=== PATIENT | male | born 1960 | race Caucasian/White ===

== ENCOUNTER 2017-01-26 19:00 | Observation (INO) | payer BC ==
--- NOTE | ~2017-01-26 | CT17 ---
[facility] A Service of [facility] & [facility] RADIOLOGY TEXT RESULTS PATIENT: SUSANNA HOLLEY LOCATION: [facility] 562-01 : 56 UNIT #: [id number] AGE: [address]: Nay White MD SEX: M ORDER DR: [id number] [place], [place] [address] [id number] I MR#: [id number] Acc #: [id number] NAME: SUSANNA HOLLEY : 1960 SEX: M STUDY DATE/TIME: 01/27/2017 12:30 UNIT: [facility] ROOM: [facility] STUDY DESCRIPTION: CT Angio Head Attending Physician: Nay White M.D. Ordering Physician: Claire Santana M.D. Primary Care Physician: Annie Gaming M.D. MEDICAL IMAGING REPORT This report is preliminary unless electronic signature is present EXAM CT angio head HISTORY Dizziness and difficulty walking for [address] FINDINGS Please see CT ANGIO NECK report for combined text results. Dictated by... Maile Vitale M.D. THIS IS AN ELECTRONICALLY VERIFIED REPORT Maile Vitale M.D. at 01/29/2017 1:46 PM CPR/psc TD: 01/28/2017 16:55 JOB #: [id number] MEDICAL IMAGING REPORT Page 1 of 1 COPY
--- NOTE | ~2017-01-26 | CT23 ---
[facility] A Service of [facility] & [facility] RADIOLOGY TEXT RESULTS PATIENT: SUSANNA HOLLEY LOCATION: [facility] 562-01 : 56 UNIT #: [id number] AGE: [address]: Nay White MD SEX: M ORDER DR: [id number] [facility] [address] [place], [place] [address] [id number] I MR#: [id number] Acc #: [id number] NAME: SUSANNA HOLLEY : 1960 SEX: M STUDY DATE/TIME: 01/27/2017 12:30 UNIT: [facility] ROOM: [facility] STUDY DESCRIPTION: CT Angio Neck Attending Physician: Nay White M.D. Ordering Physician: Claire Santana M.D. Primary Care Physician: Annie Gaming M.D. MEDICAL IMAGING REPORT This report is preliminary unless electronic signature is present EXAM CT angiogram of the head and neck with contrast dated 01/27/2017. COMPARISON MRI brain without contrast dated 01/27/2017. No prior MRA or CTA head and neck studies. HISTORY Dizziness and difficulty walking for [address] angiogram of the head and neck was obtained with IV contrast in the axial plane followed by sagittal, axial and coronal reformats of the head, curved reformats of bilateral carotid and vertebral arteries, surface-rendered images and tumbling MIP images of the [place] were obtained in a separate workstation. This CT exam was performed with one or more of the following radiation dose reduction techniques: Automatic exposure control, adjustment of mA and/or kV according to patient size, and iterative reconstruction. 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 Bilateral common carotid arteries demonstrate mild atherosclerotic plaques at the bifurcation. Bilateral internal and external carotid arteries appear to be grossly unremarkable. Right vertebral artery is dominant and within normal limits. The left vertebral artery demonstrates flow in the proximal V1 segment but it has no flow in the remaining portion of the left vertebral artery until the level of C1-2, where it is reconstituted. There is filling defect noted in the left vertebral artery involving a short segment of the level of C1-2. Distal to it, there is expected flow in the left vertebral artery as it extends intradurally. [facility] A Service of [facility] RADIOLOGY TEXT RESULTS PATIENT: SUSANNA HOLLEY LOCATION: B 562-01 : 56 UNIT #: [id number] AGE: [address]: Nay White MD SEX: M ORDER DR: HEAD: The left vertebral artery further decreases in caliber after it enters intradurally and even more after the takeoff of the left PICA as it extends to the vertebrobasilar junction. The right vertebral dominant artery also decreases in caliber as it extends towards the vertebrobasilar junction. Small basilar artery is noted throughout its course. There are bilateral posterior communicating arteries seen. Visualized bilateral posterior cerebral arteries appear to be grossly unremarkable. Bilateral P4 segments are not well seen in the reconstruction tumbling 3-D MIP images, but it is probably related to postprocessing rather than due to occlusion of the vessel. Anterior circulation demonstrates normal expected flow in bilateral intracranial internal carotid arteries, anterior cerebral arteries and middle cerebral arteries. Suspicious tiny ACom is seen. Dural venous sinuses are patent without filling defects to suggest thrombosis. EXTRAVASCULAR SOFT TISSUES: No enhancing intracranial mass, hydrocephalus or midline shift. Study is limited in evaluation of subtle stroke detection. S-shaped nasal septal deviation is noted with an apical spur in the left side. Significant degenerative changes are noted in the cervical spine. IMPRESSION 1. The left vertebral artery is visualized at its proximal origin and for the next few millimeters, after which it is not seen all the way up to the level of C1-2. There is some distal reconstitution of the left vertebral artery with filling defect within it at the level of C1-2 suggestive of a thrombus. 2. The left vertebral artery is of smaller caliber in the intracranial portion when compared to the reconstituted extracranial distal aspect. It could be related to a congenital small vessel in this region. The right vertebral artery also decreases in caliber as it extends to the basilar artery. Basilar artery is of small caliber. 3. Bilateral PComs are present, which, along with the flow from the small basilar artery, feeds bilateral posterior cerebral arteries. 4. No obvious aneurysm or AVM is seen in the head or neck. 5. No hemodynamically flow-limiting significant stenosis in bilateral ICA bulbs per NASCET criteria. 6. A preliminary read was given by Dr. Fritz Scott at 1324 hours on 01/27/2017. I discussed the findings with Dr. Santana at 10:40 p.m. on 01/27/2017. Dictated by... Maile Vitale M.D. THIS IS AN ELECTRONICALLY VERIFIED REPORT Maile Vitale M.D. at 01/29/2017 1:46 PM CPR/psc [facility] A Service of [facility] & [facility] RADIOLOGY TEXT RESULTS PATIENT: SUSANNA HOLLEY LOCATION: [address] [address] : 56 UNIT #: [id number] AGE: [address]: Nay White MD SEX: M ORDER DR: TD: 01/28/2017 16:44 JOB #: [id number] MEDICAL IMAGING REPORT Page 1 of 1 COPY
--- NOTE | ~2017-01-26 | CT15 ---
[facility] A Service of [facility] / [facility] RADIOLOGY TEXT RESULTS PATIENT: SUSANNA HOLLEY LOCATION: [facility] 562-01 : 56 UNIT #: [id number] AGE: [address]: Nay White MD SEX: M ORDER DR: [id number] [place], [place] [address] [id number] I MR#: [id number] Acc #: [id number] NAME: SUSANNA HOLLEY : 1960 SEX: M STUDY DATE/TIME: 01/26/2017 19:18 UNIT: [facility] ROOM: [facility] STUDY DESCRIPTION: CT Angio Chest Attending Physician: Nay White M.D. Ordering Physician: Cassidy Jarvis M.D. Primary Care Physician: Annie Gamign M.D. MEDICAL IMAGING REPORT This report is preliminary unless electronic signature is present EXAM CT chest with contrast, CT aortic arteriography protocol, 01/26/2017 HISTORY 56-year-old male in the ED complaining of new onset chest pain and left arm pain beginning about 30 minutes prior to arrival. Diaphoresis. Reported history of abdominal aortic aneurysm. TECHNIQUE CT examination of the chest was performed with IV contrast using CT aortic arteriography protocol. Multiplanar images were reconstructed. This CT examination was performed with one or more of the following radiation dose reduction techniques: automatic exposure control, adjustment of mA and/or kV according to patient size, and iterative reconstruction. FINDINGS Thoracic aorta is tortuous but normal in caliber. No evidence of aneurysm or aortic dissection. There is no mediastinal fluid collection or pericardial effusion. Visualized central pulmonary arteries are unremarkable. The lungs are expanded and clear. No pulmonary infiltrate, pneumothorax or pleural effusion. No rib fracture or other chest wall lesion. Limited upper abdominal images are unremarkable. IMPRESSION Negative chest CT examination using CT aortic arteriography protocol. Dictated by... Demond Martinez M.D. THIS IS AN ELECTRONICALLY VERIFIED REPORT [facility] A Service [facility] RADIOLOGY TEXT RESULTS PATIENT: SUSANAN HOLLEY LOCATION: [facility] 562-01 : 56 UNIT #: [id number] AGE: [address]: Nay White MD SEX: M ORDER DR: Demond Martinez M.D. at 01/29/2017 5:59 AM MAYRA/adriana TD: 01/27/2017 13:41 JOB #: [id number] MEDICAL IMAGING REPORT Page 1 of 1 COPY
--- NOTE | ~2017-01-26 | CT71 ---
[facility] A Service of [facility] RADIOLOGY TEXT RESULTS PATIENT: SUSANNA HOLLEY LOCATION: [facility] : 56 UNIT #: [id number] AGE: [address]: Nay White MD SEX: M ORDER DR: [id number] [place], [place] [address] [id number] I MR#: [id number] Acc #: [id number] NAME: SUSANNA HOLLEY : 1960 SEX: M STUDY DATE/TIME: 01/26/2017 19:13 UNIT: [facility] ROOM: [facility] STUDY DESCRIPTION: CT Head Wo Contrast Attending Physician: Nay White M.D. Ordering Physician: Cassidy Jarvis M.D. Primary Care Physician: Annie Gaming M.D. MEDICAL IMAGING REPORT This report is preliminary unless electronic signature is present EXAM CT head without contrast dated 01/26/[address] head without contrast dated 07/12/2011. HISTORY Chest pain, left arm pain and headaches for about 30 minutes, diaphoretic. TECHNIQUE This CT examination was performed with one or more of the following radiation dose reduction techniques: automatic exposure control, adjustment of mA and/or kV according to patient size, and iterative reconstruction. FINDINGS CT of the head was obtained without contrast. No acute intracranial hemorrhage, space-occupying mass, mass effect, midline shift or hydrocephalus. Paranasal sinuses, mastoid air cells are unremarkable. Orbits with the ocular structures do not demonstrate any significant abnormality. IMPRESSION No acute demonstrable abnormality within the brain. Dictated by... Maile Vitale M.D. THIS IS AN ELECTRONICALLY VERIFIED REPORT Maile Vitale M.D. at 01/29/2017 1:39 PM CPR/mjs [facility] A Service [facility] RADIOLOGY TEXT RESULTS PATIENT: SUSANNA HOLLEY LOCATION: [facility] : 56 UNIT #: [id number] AGE: [address]: Nay White MD SEX: M ORDER DR: TD: 01/27/2017 13:32 JOB #: [id number] MEDICAL IMAGING REPORT Page 1 of 1 COPY
--- NOTE | ~2017-01-26 | EKG ---
PATIENT: SUSANNA HOLLEY UNIT #: [id number] Ventricular Rate: 64 BPM Atrial Rate: 64 BPM P-R Interval: 144 ms QRS Duration: 86 ms Q-T Interval: 376 ms QTC Calculation(Bezet): 387 ms P [place]: 38 degrees Calculated R [place]: 24 degrees Calculated T [place]: 43 degrees Diagnosis Line: Normal sinus rhythm Diagnosis Line: Normal ECG Diagnosis Line: When compared with ECG of 26-JAN-2017 18:29, Diagnosis Line: (unconfirmed) Diagnosis Line: No significant change was found Diagnosis Line: Confirmed by JANETTE HOYT MD ([id number]) on 01/28/2017 Diagnosis Line: 7:18:37 AM INTERPRETING MD: LAI RIDDLE
--- NOTE | ~2017-01-26 | CO ---
Unit #: [id number] #: [id number] Patient: SUSANNA HOLLEY [id number] [place], [place] [address] [id number] I MR#: [id number] NAME: SUSANNA HOLLEY ROOM: 562 Age: 56 Sex: M Admission Date: 01/26/2017 : 1960 Attending Physician: Nay White M.D. Primary Care Physician: Annie Gaming M.D. Consultation Date: 01/27/2017 CONSULTATION REPORT REASON FOR CONSULTATION Left-sided numbness. PATIENT IDENTIFICATION This is a 56-year-old right-handed white male, who is evaluated in room 562, but actually I saw him in the cardiac stress testing area. SOURCE OF INFORMATION The patient and previous records. PROBLEM LIST 1. History of coronary artery disease. 2. Hyperlipidemia. 3. Chronic back pain. I believe, he has had couple of surgeries during the last year and he is not working. 4. Depression. 5. Strong family history of coronary artery disease. 6. Vasectomy. 7. Right inguinal hernia repair. HISTORY OF PRESENT ILLNESS This is a 56-year-old gentleman, who was actually admitted for some chest tightness and left-sided pain. He got concerned because of his cardiac history and came to the emergency room. He was evaluated and Dr. White wanted me to have a look at him. I saw him while he is having a stress test done. His symptoms have resolved. They were very nonspecific, it was mostly left-sided arm tingling type situation. There was no weakness. There was no double vision; speech, swallowing, or breathing problems. He is already on aspirin and Plavix. He is an ex-smoker. No headaches. No migraine. No seizure. So, I ordered an MRI of the brain and MRA of the head and neck and it was reported as unremarkable, but I got a call at 10:40 a.[address] last night from Dr. Vitale. She reported that the left vertebral artery after his initial formation, 1 to 2 mm onwards looks like it is totally occluded. It is reconstituted at the level of C1-C2 and at that level, it looks like there may be a thrombus. The right is also narrowed at the junction and the basilar is also bit narrowed. I do not have the official report yet. Unit #: [id number] #: [id number] Patient: SUSANNA HOLLEY The important aspect is that the patient has no stroke on the MRI and his symptoms are very nonspecific and nonrecurrent. I got the report and I called the family today before 9:00 a.m. and discussed everything with them. I informed Dr. White. His symptoms were very nonspecific with the chest tightness and the other left-sided symptoms with no acute stroke, I really doubt this was a TIA. I did find out that the patient has been seeing Dr. Root at [facility] for surgery, so I recommended that they may continue seeing the same Department and see Dr. Castelan or Dr. Nguyen. I have called the Radiology Department to make a disk of the patient MRI and MRAs. They can also see Dr. Turner. Conversely, they can also go to [place] or to [facility]. There is no point in seeing Dr. Wei, who is not an interventionalist and does not go to the hospital. Also, if there are recurrent symptoms including dizziness or any other focal issues, then go to someplace, as discussed above who does intervention. He is already on aspirin and Plavix and Lipitor 40 mg. I also recommended to discuss with the primary care physician to get off omeprazole and use H2-andrea or others. She was very anxious and I have took my time and she wrote everything down. No other issues acutely. PAST MEDICAL HISTORY As discussed above. PAST SURGICAL HISTORY As discussed above. ALLERGIES He is allergic to eggs. HOME MEDICATIONS Atorvastatin 40 mg, hydrochlorothiazide, cyclobenzaprine, omeprazole, clopidogrel, meloxicam, aspirin. FAMILY HISTORY Coronary artery disease. SOCIAL HISTORY He is . Lives with his . Former smoker. No alcohol or drug use. REVIEW OF SYSTEMS GENERAL: No recent weight issues, fever, chills, rigor, or sweats. He does have some chronic pain. HEENT: No headaches. No double vision, earache, runny nose, or sore throat anymore. NECK: No neck pain. CARDIOVASCULAR: Some chest tightness. PULMONARY: No shortness of air, cough, or expectoration. GI: No nausea, vomiting, diarrhea, or constipation. : No genitourinary symptoms. EXTREMITIES: No extremity problems other than discussed. MUSCULOSKELETAL: History of chronic back pain. Unit #: [id number] #: [id number] Patient: SUSANNA HOLLEY PSYCHIATRIC: Anxiety and depression. NEUROLOGIC: Back pain. No other hematologic, dermatologic, or endocrine problem. PHYSICAL EXAMINATION VITAL SIGNS: Temperature 98.1, pulse 70, respirations 22, blood pressure 124/81, O2 were 97% to 98%, weight of 186 pounds, BMI was 26. NEUROLOGIC: The patient is awake. He is alert. He is oriented. He can name and he can follow commands. No right/left confusion. No finger agnosia. Cranial nerve examination demonstrates full puri of vision. Eye movements are conjugate. I did not see any ptosis. I do not see any nystagmus. Extraocular movements are intact. Sensation on the face and scalp are normal. Strength of muscles of facial expression normal. Hearing seemed to be intact bilaterally. Tongue was midline. Uvula was midline. Palate elevation was normal. Head turning and shoulder shrugs were unremarkable. Motor examination demonstrated normal bulk, tone. Strength was 5/5. Sensory examination intact for soft touch and pain sensation. No extinction was seen. Romberg was not evaluated. Gait examination was deferred. I could not get any reflexes. Toes are equivocal. Coordination was normal. DIAGNOSTIC STUDIES LABORATORY RESULTS: Reviewed and as discussed in detail. IMAGING STUDIES: Reviewed and as discussed in detail. IMPRESSION The patient was admitted for chest pain and some questionable dizziness and headache and left-sided numbness, which has all resolved. His cardiac test is in progress. I did find out that he has left vertebral occlusion and right narrowing, so I have recommended that he sees hand model, Neurology, Neurosurgery, and please refer to history of present illness regarding that detail. The patient was seen yesterday, dictation done today as also with added information and documentation. Call me for any other questions, issues, or concerns and go to the nearest institution for further events. Dictated by... Claire Santana M.D. GRANT/milena TD: 01/29/2017 03:19 JOB #: [id number] Unit #: [id number] #: [id number] Patient: SUSANNA HOLLEY CONSULTATION REPORT Page 1 of 1 X Claire Santana MD CONSULTATION REPORT
--- NOTE | ~2017-01-26 | TH ---
Unit #: [id number] #: [id number] Patient: SUSANNA HOLLEY [id number] [address] [id number] I MR#: [id number] NAME: SUSANNA HOLLEY : 1960 SEX: M STUDY DATE/TIME: UNIT: C5B ROOM: 562 STUDY DESCRIPTION: Nuclear Study Attending Physician: Nay White M.D. Primary Care Physician: Annie Gaming M.D. CARDIOLOGY REPORT EXAM Exercise Cardiolite Stress Test - Nuclear Portion PROCEDURE Using technetium 99m labeled Cardiolite, rest and stress SPECT images were obtained. Multiple SPECT images were obtained in various views including horizontal and vertical long axis and short axis views of the left ventricle. Images were obtained by gated SPECT method. Patient was administered 11.56 mCi of Cardiolite at rest. The patient was administered 30.5 mCi of Cardiolite at peak exercise. Total exercise time is 8 minutes. On the stress images, there is an extremely small area of mild decreased isotope activity inferoapically. The rest images show normal perfusion. Comparing rest and stress images, an extremely small area of possible stress-induced ischemia involving the inferoapical wall of the left ventricle cannot be ruled out. The left ventricular ejection fraction is calculated to be 58%. There is no focal wall motion abnormality seen. CONCLUSION 1. An extremely small area of possible stress-induced ischemia involving the inferoapical wall of the left ventricle cannot be ruled out. 2. The left ventricular ejection fraction is calculated to be 58%. 3. There is no focal wall motion abnormality seen. 4. It must be noted that the patient exercised for 8 minutes with no chest pain or ischemic changes on the EKG. Clinical correlation is requested. Dictated by... Orlando Silva TD: 01/27/2017 16:14 JOB #: [id number] Unit #: [id number] #: [id number] Patient: SUSANNA HOLLEY CARDIOLOGY REPORT Page 1 of 1 X Attmarnier,Nay Z MD <ELECTRONICALLY SIGNED> 05/05/17 1429 CARDIOLOGY REPORT
--- NOTE | ~2017-01-26 | HP ---
Unit #: [id number] #: [id number] Patient: SUSANNA HOLLEY 198098 [facility] [address]. [place], [place] [address] [id number] MR#: [id number] NAME: SUSANNA HOLLEY ROOM: 562 Age: 56 Sex: M Admission Date: 01/26/2017 : 1960 Attending Physician: Nay White M.D. Primary Care Physician: Annie Gaming M.D. HISTORY AND PHYSICAL HISTORY OF PRESENT ILLNESS This is a 56-year-old white male, well known to Dr. Devlin, with a past medical history of coronary artery disease, ST elevation myocardial infarction, status post cardiac catheterization on 08/22/[address] [facility] which revealed a 70% to 75% stenosis in the LAD followed by a 75% stenosis at the origin of the second septal merchandise flow team member. The second diagonal was 70%. Proximal left circumflex was 99%. Right coronary artery was 70%. PDA and PLV were occluded which was found to be vasospastic. He underwent placement of a drug-eluting stent in the proximal left circumflex but the procedure was complicated with a spiral dissection which was repaired with a second stent. Additional past medical history includes hyperlipidemia, chronic back pain and reformed tobacco abuse. The patient did have a stress test in October 2014 which reveals no ischemia. There was no ischemia. Ejection fraction was 55%. He presented to the emergency department with complaints of severe headache on the left side of his head that started yesterday. He also was unsteady on his feet and was having a difficult time walking. He has some discomfort and numbness that went into his left arm. His states that he was not acting as his normal self and was also disoriented. She rushed him to the car and he was brought to the emergency department. In the car, he did have an episode of tightness that went across his mid sternal chest. He took one nitro spray. The whole episode lasted over an hour. They believe his symptoms started around 5:30 p.m. In the emergency department, he was found to be quite anxious. Labs and CT imaging were obtained. Labs revealed a low potassium of 3.4. Renal function is normal. Cardiac enzymes were negative. Urine toxicology was positive for marijuana. CT of the head revealed no acute abnormalities. CT of the chest with contrast revealed no PE or dissection. Chest x-ray was nonacute. He was given a dose of Ativan for anxiety, started on normal saline and given Zofran and a full aspirin. He was admitted for further observation and cardiology was consulted. He is currently resting comfortably and denies any symptoms. He denies loss of consciousness but states that yesterday he did have some lightheadedness. He denies previous episodes of chest pain and has not used his nitroglycerin prior to this episode. There are no reports of shortness of breath with activity or rest. He denies palpitations or lower extremity edema. He was walking a couple of miles a day until 2016 when he underwent back surgery twice. He is currently on short term disability and unable to work due to a recurrent herniated disk. He follows with Dr. Fried with neuro spine. He had not been exercising as much recently due to issues with his back. PAST MEDICAL HISTORY Unit #: [id number] #: [id number] Patient: SUSANNA HOLLEY 1. Coronary artery disease, inferolateral myocardial infarction, status post cardiac catheterization 08/22/[address] [facility] [address] Dr. Devlin which revealed left main normal. LAD 70% to 75%. 75% at origin of the second septal merchandise flow team member. Second diagonal 70%. Proximal left circumflex 99%. Right coronary artery 70%. PDA and PLV occluded. PDA and PLV found to be vasospastic with response to nitroglycerin. Status post PCI and drug-eluting stent in the proximal left circumflex which complicated spinal dissection. 2. Exercise Cardiolite stress test on November 03, 2014, revealed no ischemia. Suspicion for small old inferior myocardial infarction. Ejection fraction 55%. Technically difficult study. 3. Hypertension. 4. Hyperlipidemia. 5. Chronic back pain. 6. Degenerative disc disease. 7. Herniated disc. 8. Tennis elbow. 9. Reformed tobacco abuse. PAST SURGICAL HISTORY 1. Back surgery x2 in 2016. 2. Hernia repair. 3. Vasectomy. HOME MEDICATIONS 1. Flexeril 10 mg p.o. three times daily p.r.n. 2. Pantoprazole 40 mg p.o. daily. 3. Meloxicam 15 mg p.o. daily. 4. Losartan 100 mg p.o. daily. 5. Nitroglycerin, one spray daily p.r.n. 6. Aspirin 81 mg p.o. daily. 7. Plavix 75 mg p.o. daily. 8. Lipitor 40 mg p.o. daily. 9. Paroxetine 40 mg p.o. daily. 10. Carvedilol 3.125 mg p.o. b.i.d. 11. Hydrochlorothiazide 25 mg p.o. daily. ALLERGIES Eggs. SOCIAL HISTORY The patient lives in a private residence with his . He is a reformed smoker and quit over 20 years ago. He does have a history of alcohol use but quit five years ago. He denies illicit drugs. He did test positive for marijuana in his urine toxicology. FAMILY HISTORY Significant for heart disease. His brother and father both of myocardial infarction. Father had diabetes. His mother is still living at the age of 88 but did have a cerebrovascular accident. REVIEW OF SYSTEMS Ten point review of systems negative except for details noted above in HPI. PHYSICAL EXAMINATION VITAL SIGNS: Temperature 97.7, pulse 57, blood pressure 125/88. CONSTITUTIONAL: This is a 56-year-old white male in no acute distress. Unit #: [id number] #: [id number] Patient: SUSANNA HOLLEY SKIN: Warm and dry. NECK: Supple. No jugular vein distention. No hepatojugular reflux. Normal carotid upstrokes. No carotid bruits auscultated. HEART: S1 and S2. Regular rate and rhythm. No murmurs, rubs or gallops. LUNGS: Bilateral breath sounds have good air entry throughout all lung puri. Respirations even and unlabored. No rales, rhonchi, or wheezes. ABDOMEN: Soft, nontender, and nondistended. Positive bowel sounds auscultated x4 quadrants. No ascites noted. EXTREMITIES: Bilateral extremities have no pretibial pitting edema. DP and PT pulses 2+. Capillary refill less than three seconds. DIAGNOSTIC STUDIES LABORATORY: White blood cell count 10.7, hemoglobin 14, hematocrit 42.6, platelets 304, sodium 136, potassium 3.4, chloride 101, CO2 23, BUN 20, creatinine 0.8, glucose 99, magnesium 1.9, AST 23, ALT 21, alkaline phos. 66. Troponin 0.03 and 0.05. Total cholesterol 192, triglycerides 287, LDL 95, HDL 40. Urine toxicology positive for marijuana. Urinalysis negative. IMAGING: CTA of the chest reveals no pulmonary embolus or dissection. CT of the head reveals no acute abnormalities. Chest x-ray reveals no acute findings. The patient had a recent MRI at [facility] to assess surgical repairs and he was found to have a herniated disc. He was told that he had a mild abdominal aortic aneurysm. The disc has been retrieved but images cannot be viewed. Will need to call [facility] during business hours. CARDIOVASCULAR: Electrocardiogram reveals sinus rhythm with no acute findings. IMPRESSION 1. Possible transient ischemic attack with unsteady gait, left sided headache, left upper extremity numbness and brief disorientation. 2. Chest pain. 3. Coronary artery disease with history of ST elevation myocardial infarction, status post percutaneous coronary intervention and stent in the proximal left circumflex August 2013. Left anterior descending of 70% to 75% and right coronary artery of 70%, not dilated. Second diagonal 70%, not dilated. 4. Left ventricular ejection fraction 55%. 5. Hypertension. 6. Hyperlipidemia. 7. Anxiety. 8. Reported abdominal aortic aneurysm per imaging from [facility]. Report and images to be reviewed. 9. Chronic back pain with degenerative disc disease and herniated disc. 10. Hypokalemia. 11. Reformed tobacco abuse. PLAN 1. The patient presented to the hospital with multiple complaints. He was admitted for further observation. Unit #: [id number] #: [id number] Patient: SUSANNA HOLLEY 2. It is unclear the etiology of his symptoms. Dr. Santana with neurology will be consulted for further assessment. 3. Cardiac enzymes are negative and EKG reveals no acute findings. The patient will be scheduled for an exercise Cardiolite stress test. 4. Will obtain a 2D echocardiogram and Doppler to assess LV function and valves. 5. Will check orthostatic vital signs and a TSH level. 6. Patient's potassium has been supplemented. Will recheck BMP today. 7. Further recommendations depending on hospital course. Dictated by Sara Ponce APRN for Orlando Silva TD: 01/28/2017 13:47 JOB #: [id number] HISTORY AND PHYSICAL Page 1 of 1 X X HISTORY AND PHYSICAL
--- NOTE | ~2017-01-26 | ST ---
Unit #: [id number] #: [id number] Patient: SUSANNA HOLLEY [id number] [address] [address] [id number] I MR#: [id number] NAME: SUSANNA HOLLEY : 1960 SEX: M STUDY DATE/TIME: UNIT: C5B ROOM: 562 STUDY DESCRIPTION: Stress Test Attending Physician: Nay White M.D. Primary Care Physician: Annie Gaming M.D. CARDIOLOGY REPORT EXAM Exercise Cardiolite Stress Test DESCRIPTION Baseline EKG - normal sinus rhythm with ventricular rate 69 beats/minute, slow R wave progression, peak T waves in inferior and anterolateral leads. Patient walked on the treadmill for 8 minutes utilizing Herbie protocol achieving a workload of 10.10 METs. 96% of maximum target heart rate achieved at 157 beats/minute with a maximum blood pressure response of 162/92 mmHg. EKG during the test was equivocal to baseline. No acute ischemic changes. Patient had no complaints of chest pain, palpitations or dizziness. Had increased shortness of breath and fatigue which resolved in recovery phase. IMPRESSION 1. Functional class III with a workload of 10.10 METs. 2. The patient walked for 8 minutes achieving 96% of maximum target heart rate at 157 beats/minute with a maximum blood pressure response of 162/92 mmHg. 3. EKG during the test was equivocal to baseline. No acute ischemic changes. 4. The patient had no complaints of chest pain, palpitations or dizziness. Had increased shortness of breath and fatigueness which resolved in recovery phase. 5. Cardiolite was injected at maximum target heart rate. Radionuclide test pending. Please correlate with nuclear images. Dictated by... Anabella Thompson A.P.R.N. for Orlando Silva/trevon TD: 01/27/2017 15:41 JOB #: [id number] Unit #: [id number] #: [id number] Patient: SUSANNA HOLLEY CARDIOLOGY REPORT Page 1 of 1 X Anabella Thompson APRN CARDIOLOGY REPORT
--- NOTE | ~2017-01-26 | CR72 ---
[facility] A Service of [facility] RADIOLOGY TEXT RESULTS PATIENT: SUSANNA HOLLEY LOCATION: [facility] 562-01 : 56 UNIT #: [id number] AGE: [address]: Nay White MD SEX: M ORDER DR: [id number] [facility] [address] [facility]. [place], [place] [address] [id number] I MR#: [id number] Acc #: [id number] NAME: SUSANNA HOLLEY : 1960 SEX: M STUDY DATE/TIME: 01/26/2017 18:41 UNIT: [facility] ROOM: [facility] STUDY DESCRIPTION: CR Chest Single View Portable Attending Physician: Nay White M.D. Ordering Physician: Cassidy Jarvis M.D. Primary Care Physician: Annie Gaming M.D. MEDICAL IMAGING REPORT This report is preliminary unless electronic signature is present EXAM Portable chest HISTORY Chest and left arm pain and headache beginning today FINDINGS AP portable view is obtained. The cardiovascular configuration is normal and the lungs are clear. CONCLUSION Negative portable chest Dictated by... Mac Negron M.D. THIS IS AN ELECTRONICALLY VERIFIED REPORT Mac Negron M.D. at 01/29/2017 7:21 AM Eileen TD: 01/27/2017 15:41 JOB #: [id number] MEDICAL IMAGING REPORT Page 1 of 1 COPY
--- NOTE | ~2017-01-26 | EKG ---
PATIENT: SUSANNA HOLLEY UNIT #: [id number] Ventricular Rate: 64 BPM Atrial Rate: 64 BPM P-R Interval: 148 ms QRS Duration: 92 ms Q-T Interval: 392 ms QTC Calculation(Bezet): 404 ms P [place]: 15 degrees Calculated R [place]: 22 degrees Calculated T [place]: 36 degrees Diagnosis Line: Normal sinus rhythm Diagnosis Line: Normal ECG Diagnosis Line: No previous ECGs available Diagnosis Line: Confirmed by SUJEY YOON MD ([id number]) on Diagnosis Line: 01/27/2017 4:54:53 PM INTERPRETING MD: DANIEL
[2017-01-26 18:56] LABS: POC - CKMB 1.7 ng/mL (0.0-7.9); POC - TROPONIN <0.05 ng/mL (<=0.05)
[~2017-01-26 19:00] MED LIST: AMLODIPINE BESYL5 MG PO; BAYER CHEWABLE81 MG PO; CARVEDILOL3.125 MG PO; CHEWABLE ASPIRI81 MG PO; CLOPIDOGREL BIS75 MG PO; CRESTOR40 MG PO; EFFIENT10 MG PO; FLEXERIL10 MG PO; HYDROCHLOROTHIA25 MG PO; LACRI-LUBE0.7 GM OPT OP; LIPITOR40 MG PO; LISINOPRIL10 MG PO; LOSARTAN POTAS100 MG PO; MELOXICAM15 MG PO; NITROGLYCERIN0.4 MG PO; PANTOPRAZOLE SO40 MG PO; PAROXETINE HCL40 MG PO; PAXIL40 MG PO; PREDNISONE10 MG/DOSE PO; VALACYCLOVIR1000 MG PO
[2017-01-26 19:13] LABS: BASOPHIL# 0.1 X10e3 (0-0.3); BASOPHIL% 0.8 % (0-2.5); EOSINOPHIL# 0.3 X10e3 (0-0.7); EOSINOPHIL% 2.9 % (0.0-7.0); HEMATOCRIT 42.6 % (38.0-50.0); LYMPHOCYTE# 3.9 X10e3 (1.0-3.5); LYMPHOCYTE% 36.7 % (17.0-45.0); MEAN CELL VOLUME 84.9 FL (83-96); MEAN CORPUSCULAR HEMOGLOBIN 27.9 PG (28-34); MEAN CORPUSCULAR HGB CONC 32.9 g/dL (30-36); MEAN PLATELET VOLUME 8.4 FL (6.5-11.5); MONOCYTE# 0.9 X10e3 (0-1.0); MONOCYTE% 8.4 % (3.0-12.0); NEUTROPHIL# 5.4 X10e3 (1.5-7.1); NEUTROPHIL% 51.2 % (40-75); PLATELET COUNT 304 X10e3 (140-420); RED BLOOD COUNT 5.02 X10e (3.90-5.60); RED CELL DISTRIBUTION WIDTH 14.1 % (11.0-15.5); WHITE BLOOD COUNT 10.6 X10e3 (4.0-10.5)
[2017-01-26 19:14] LABS: DIFF IND NO
[2017-01-26 19:22] LABS: INR 0.9; PARTIAL THROMBOPLASTIN TIME 22.6 SECONDS (23.5-31.3); PROTHROMBIN TIME (PATIENT) 9.8 SECONDS (9.6-11.5)
[2017-01-26 19:30] LABS: ALBUMIN SERUM 4.2 g/dL (3.5-5.0); ALKALINE PHOSPHATASE 66 U/L (32-92); ALT (SGPT) 21 U/L (10-40); AST (SGOT) 23 U/L (10-42); BILIRUBIN,TOTAL 0.6 mg/dL (0.2-2.0); BLOOD UREA NITROGEN 20 mg/dL (9-23); CALCIUM SERUM 9.2 mg/dL (8.4-10.2); CARBON DIOXIDE 23 mmol/L (22-31); CHLORIDE 101 mmol/L (100-111); CREATININE SERUM 0.8 mg/dL (0.6-1.4); GLOM FILT RATE Estimated 98.5 mL/min (>60); GLUCOSE FASTING 99 mg/dL (70-110); LIPASE 55 U/L (22-51); MAGNESIUM 1.9 mg/dL (1.6-3.0); POTASSIUM 3.4 mmol/L (3.5-5.1); PROTEIN TOTAL SERUM 7.2 g/dL (6.0-8.3); SODIUM 136 mmol/L (135-145)
[2017-01-26 19:34] LABS: BILIRUBIN, DIRECT <0.1 mg/dL (0.0-0.2); BILIRUBIN,INDIRECT 0.5 mg/dL (0.0-0.9)
[2017-01-26 19:50] LABS: POC - CREATININE 0.81 mg/dL (0.64-1.27); POC - GFR >60.0 mL/min (>60)
[2017-01-26 20:22] LABS: POC - CKMB <1.0 ng/mL (0.0-7.9); POC - TROPONIN <0.05 ng/mL (<=0.05)
[2017-01-26 20:59] LABS: CHOLESTEROL 212 mg/dL (0-200); HDL CHOLESTEROL 47 mg/dL (29-75); LDL CHOLESTEROL 128 mg/dL (-130); LDL/HDL RATIO 3 RATIO (0-4); TRIGLYCERIDES 187 mg/dL (10-160)
[2017-01-27 03:48] LABS: %MB 3.3 % (0.0-4.0); MB 2.8 ng/ml
[2017-01-27 03:55] LABS: CHOLESTEROL 192 mg/dL (0-200); HDL CHOLESTEROL 40 mg/dL (29-75); LDL CHOLESTEROL 95 mg/dL (-130); LDL/HDL RATIO 2 RATIO (0-4); TRIGLYCERIDES 287 mg/dL (10-160)
[2017-01-27 04:42] LABS: URINE SOURCE CLEAN CATCH
[2017-01-27 04:47] LABS: URINE APPEARANCE CLEAR; URINE BILIRUBIN NEG (NEG); URINE BLOOD NEG (NEG); URINE COLOR YELLOW; URINE GLUCOSE NEG (NEG); URINE KETONE NEG (NEG); URINE LEUKOCYTE ESTERASE NEG (NEG); URINE NITRATE NEG (NEG); URINE PROTEIN NEG (NEG); URINE SPECIFIC GRAVITY 1.008 (1.003-1.035); URINE UROBILINOGEN 0.2 MG/DL (NEG)
[2017-01-27 04:49] LABS: CULTURE INDICATED? NO
[2017-01-27 04:57] LABS: AMPHETAMINE NEG (NEG); BARBITURATES NEG (NEG); BENZODIAZEPINES NEG (NEG); COCAINE NEG (NEG); MARIJUANA POS (NEG); OPIATES NEG (NEG); TRICYCLIC ANTIDEPRESSANTS NEG (NEG); U METHADONE NEG (NEG)
[2017-01-27 09:56] LABS: BUN/CREATININE RATIO 17.5; CALCIUM SERUM 9.1 mg/dL (8.4-10.2); CREATININE SERUM 0.8 mg/dL (0.6-1.4); GLOM FILT RATE Estimated 98.5 mL/min (>60); POTASSIUM 4.2 mmol/L (3.5-5.1)
[2017-01-27 09:58] LABS: MB 2.4 ng/ml
== END 2017-01-27 22:00 | disposition home or self-care (01) | DRG 103 ==
LOC: CED 19:00 → CEDOF 20:15 → C5B 21:35
PROVIDERS: Family Medicine; Internal Medicine Cardiovascular Disease; Student in an Organized Health Care Education/Training Program
DX: R51 Headache (principal); R26.81 Unsteadiness on feet; R20.0 Anesthesia of skin; R41.0 Disorientation, unspecified; R07.9 Chest pain, unspecified; I25.2 Old myocardial infarction; I25.10 Atherosclerotic heart disease of native coronary artery without angina pectoris; Z95.5 Presence of coronary angioplasty implant and graft; I10 Essential (primary) hypertension; I65.03 Occlusion and stenosis of bilateral vertebral arteries; E78.5 Hyperlipidemia, unspecified; F41.9 Anxiety disorder, unspecified; I71.4 Abdominal aortic aneurysm, without rupture; I08.8 Other rheumatic multiple valve diseases; E87.6 Hypokalemia; G89.29 Other chronic pain; M54.9 Dorsalgia, unspecified; Z82.49 Family history of ischemic heart disease and other diseases of the circulatory system; Z87.891 Personal history of nicotine dependence; Z83.3 Family history of diabetes mellitus; Z82.3 Family history of stroke; Z91.012 Allergy to eggs; Z79.82 Long term (current) use of aspirin; Z79.02 Long term (current) use of antithrombotics/antiplatelets
CPT/HCPCS: 70450; 70496; 70498; 70551; 71010; 71275; 78452; 80048; 80061; 80076; 80307; 81003; 82550; 82553; 82565; 82947; 83690; 83735; 83880; 84443; 84484; 85025; 85379; 85610; 85730; 93005; 93017; 93306; 96361; 96372; 96374; 96375; 99291; A9500; G0378; J1650; J2060; J2405; Q9967